=== PATIENT | male | born 1970 | race Caucasian/White ===

== ENCOUNTER 2019-04-25 10:24 | Inpatient (IN) | payer OTHER ==
[~2019-04-25] VITALS: Ht 185.4 cm; Wt 114.5 kg
[~2019-04-25 10:24] MED LIST: ACTOS15 MG PO; ASPIRIN81 MG PO; B COMPLEX1 CAP PO; BYETTA10 MCG/0.0 SC; EXFORGE 10 MG-31 TAB PO; FLONASE ALLERG9.9 ML NAS; METFORMIN HCL1000 MG PO; NEXIUM40 MG PO; PIOGLITAZONE HC30 MG PO; PREDNISONE10 MG PO; ROBITUSSIN AC 110 ML PO; SUPER EPA 2002000 MG PO; TESSALON PERLE200 MG PO; TRULICITY1.5 MG/0.5 SC; VITAMIN D1000 IU PO; ZITHROMAX Z PA250 MG PO
[2019-04-25 10:43] LABS: BASO % 0.8 % (0.0-1.0); EOS # 0.2 10*3/uL (0.0-0.4); EOS % 2.9 % (1.0-4.0); HEMATOCRIT 40.8 % (42.0-52.0); HEMOGLOBIN 13.4 g/dl (14.0-18.0); LYMPH # 1.2 10*3/uL (1.3-4.4); LYMPH % 22.7 % (27.0-41.0); MEAN CELL VOLUME 89.3 fl (80.0-94.0); MEAN CORPUSCULAR HGB 29.3 pg (27.0-31.0); MEAN CORPUSCULAR HGB CONC 32.8 g/dl (33.0-37.0); MEAN PLATELET VOLUME 11.1 fl (9.6-12.3); MONO # 0.5 10*3/uL (0.1-1.0); MONO % 10.3 % (3.0-9.0); NEUT # 3.3 10*3/uL (2.3-7.9); NEUT % 62.9 % (47.0-73.0); PLATELET COUNT AUTOMATED 222 10*3/uL (130-400); RED BLOOD COUNT 4.57 10*6/uL (4.50-5.90); RED CELL DISTRI WIDTH 13.5 % (0-14.5); WHITE BLOOD COUNT 5.2 10*3/uL (4.8-10.8)
[2019-04-25 10:49] VITALS: BP 142/84
[2019-04-25 10:54] LABS: INTERNATIONAL NORM RATIO 0.9 (2.0-3.5)
[2019-04-25 10:59] LABS: ALBUMIN 3.7 gm/dl (3.1-4.5); ALKALINE PHOSPHATASE 74 U/L (45-117); BUN 17 mg/dl (7-24); CHLORIDE 107 mmol/L (98-107); CREATININE 1.03 mg/dL (0.70-1.30); SGOT/AST 27 IU/L (3-35); SGPT/ALT 63 U/L (12-78); SODIUM 139 mmol/L (136-145); TOTAL PROTEIN 7.1 gm/dL (6.4-8.2)
[2019-04-25 11:00] LABS: TROPONIN I < 0.015 ng/ml (<0.045)
[2019-04-25] MEDS ORDERED: NEXIUM40 MG PO (11:21)
[2019-04-25] MEDS ORDERED: PIOGLITAZONE HC45 MG PO (11:22)
[2019-04-25] MEDS ORDERED: LIPITOR40 MG PO (11:23)
[2019-04-25] MEDS ORDERED: TRIBENZOR 40-11 EAC1 PO (11:23)
[2019-04-25] MEDS ORDERED: GLUCOPHAGE1000 MG PO (11:23)
[2019-04-25] MEDS ORDERED: VITAMIN B COMPL IJ (11:24)
[2019-04-25] MEDS ORDERED: ASPIRIN81 M1 PO (11:24)
[2019-04-25] MEDS ORDERED: TRULICITY1.5 MG/0.5 SC (11:24)
[2019-04-25] MEDS ORDERED: ZYRTEC10 MG PO (11:24)
[2019-04-25] MEDS ORDERED: GINGER500 MG PO (11:25)
[2019-04-25] MEDS ORDERED: VITAMIN D-32000 UNI1 PO (11:25)
[2019-04-25] MEDS ORDERED: PRINIVIL10 MG PO (11:28)
[2019-04-25] MEDS ORDERED: B121000 MCG/1 IM (11:29)
[2019-04-25 11:40] VITALS: BP 138/92
--- NOTE | 2019-04-25 11:40 | NUR ---
A 49, admitted to , under the services of [facility] DO with a diagnosis of CHEST PAIN. Chief complaint is CHEST TIGHTNESSS, MILD SOB, & HEAD FLET LIKE IT WAS GOING TO EXPLODE. Patient arrived via stretcher from ER. Monitor applied. Initial assessment completed. Vital signs taken and recorded. [facility] HE[facility] DO notified of admission to the unit. Orders received. See assessment for past medical history, medications and allergies. Patient and/or family oriented to unit. [facility] visitation policy reviewed. Clothing/patient valuable form completed. ANURAG AUGUSTIN
[2019-04-25 12:00] VITALS: BP 138/82
--- NOTE | 2019-04-25 12:28 | NUR ---
PER DR BOWEN DO NOT START LISINOPRIL - PATIENT TO HAVE STRESS TEST ON SATURDAY
[2019-04-25 13:40] VITALS: BP 122/68
[2019-04-25 16:00] VITALS: BP 117/70
--- NOTE | 2019-04-25 17:09 | NUR ---
TYLENOL GIVEN FOR HEADACHE - NTG PASTE REMOVED TO SEE IF THAT HELPS HEADACHE SINCE BP IMPROVED
--- NOTE | 2019-04-25 18:22 | NUR ---
HEADACHE BETTER SINCE TYLENOL - SISTER VISITING
[2019-04-25 20:00] VITALS: BP 134/66
[2019-04-26] VITALS: BP 108/66
--- NOTE | 2019-04-26 02:26 | NUR ---
24 HR. CHART CHECK COMPLETE.
[2019-04-26 06:16] LABS: BASO % 0.9 % (0.0-1.0); EOS # 0.2 10*3/uL (0.0-0.4); EOS % 3.2 % (1.0-4.0); HEMATOCRIT 39.8 % (42.0-52.0); HEMOGLOBIN 13.2 g/dl (14.0-18.0); LYMPH # 1.2 10*3/uL (1.3-4.4); LYMPH % 25.1 % (27.0-41.0); MEAN CELL VOLUME 89.2 fl (80.0-94.0); MEAN CORPUSCULAR HGB 29.6 pg (27.0-31.0); MEAN CORPUSCULAR HGB CONC 33.2 g/dl (33.0-37.0); MEAN PLATELET VOLUME 11.6 fl (9.6-12.3); MONO # 0.6 10*3/uL (0.1-1.0); MONO % 12.8 % (3.0-9.0); NEUT # 2.7 10*3/uL (2.3-7.9); NEUT % 57.6 % (47.0-73.0); PLATELET COUNT AUTOMATED 219 10*3/uL (130-400); RED BLOOD COUNT 4.46 10*6/uL (4.50-5.90); RED CELL DISTRI WIDTH 13.6 % (0-14.5); WHITE BLOOD COUNT 4.7 10*3/uL (4.8-10.8)
[2019-04-26 06:50] LABS: ALBUMIN 3.4 gm/dl (3.1-4.5); BUN 17 mg/dl (7-24); CHLORIDE 108 mmol/L (98-107); CHOLESTEROL 131 mg/dL (<200); CREATININE 0.95 mg/dL (0.70-1.30); POTASSIUM 3.9 mmol/L (3.5-5.1); SGOT/AST 23 IU/L (3-35); SGPT/ALT 55 U/L (12-78); SODIUM 140 mmol/L (136-145)
[2019-04-26 06:58] LABS: ALKALINE PHOSPHATASE 62 U/L (45-117); FREE T4 0.99 ng/dl (0.76-1.46); HDL CHOLESTEROL 34 mg/dl (40-60); LDL CHOLESTEROL 67 mg/dL (9-159); TOTAL PROTEIN 6.6 gm/dL (6.4-8.2); TRIGLYCERIDES 152 mg/dl (<150); VLDL CHOLESTEROL 30 mg/dL (6-40)
--- NOTE | 2019-04-26 07:08 | NUR ---
24 HR chart check completed.
--- NOTE | 2019-04-26 09:57 | NUR ---
CALLED DR. MARQUEZ IN REGARDS TO PT'S BP OF 102/74. HE STATED TO HOLD ALL BP MEDICATIONS THIS AM.
[2019-04-26 09:58] VITALS: BP 102/74
[2019-04-26 12:00] VITALS: BP 125/85
[2019-04-26 16:00] VITALS: BP 126/79
--- NOTE | 2019-04-26 16:50 | NUR ---
PRN TYLENOL GIVEN FOR A HEADACHE. WILL CONTINUE TO ASSESS EFFECTIVENESS.
--- NOTE | 2019-04-26 17:50 | NUR ---
PRN TYLENOL WAS EFFECTIVE. PT IS RESTING COMFORTABLY, IN A CHAIR. WILL CONTINUE TO MONITOR.
--- NOTE | 2019-04-26 19:30 | NUR ---
PATIENT IS RESTING IN BED WITH EASY AND REGULAR RESPERS ON ROOM AIR. ASSESSMENT IS COMPLETE WITH NO C/O OR S/S OF DISTRESS NOTED AT THIS TIME. BED IS LOW, LOCKED, AND CALL LIGHT IS WITHIN REACH. WILL CONTINUE TO MONITOR SEE SHIFT ASSESSMENT.
[2019-04-26 20:00] VITALS: BP 124/79
[2019-04-27] VITALS: BP 122/78
[2019-04-27 06:15] LABS: BASO # 0.1 10*3/uL (0.0-0.1); BASO % 1.1 % (0.0-1.0); EOS # 0.1 10*3/uL (0.0-0.4); EOS % 3.1 % (1.0-4.0); HEMOGLOBIN 13.2 g/dl (14.0-18.0); LYMPH # 1.2 10*3/uL (1.3-4.4); LYMPH % 26.9 % (27.0-41.0); MEAN CELL VOLUME 88.7 fl (80.0-94.0); MEAN CORPUSCULAR HGB 29.3 pg (27.0-31.0); MEAN PLATELET VOLUME 11.7 fl (9.6-12.3); MONO # 0.6 10*3/uL (0.1-1.0); MONO % 13.1 % (3.0-9.0); NEUT # 2.6 10*3/uL (2.3-7.9); NEUT % 55.6 % (47.0-73.0); PLATELET COUNT AUTOMATED 214 10*3/uL (130-400); RED BLOOD COUNT 4.51 10*6/uL (4.50-5.90); RED CELL DISTRI WIDTH 13.6 % (0-14.5); WHITE BLOOD COUNT 4.6 10*3/uL (4.8-10.8)
[2019-04-27 06:36] LABS: BUN 15 mg/dl (7-24); CHLORIDE 107 mmol/L (98-107); CREATININE 0.92 mg/dL (0.70-1.30); SODIUM 141 mmol/L (136-145)
[2019-04-27 08:00] VITALS: BP 118/80
--- NOTE | 2019-04-27 08:14 | NUR ---
ASSESSMENT COMPLETE AT THIS TIME. PT STABLE, VITALS WNL. NO COMPLAINTS VOICED AT THIS TIME. PT DENIES CHEST PAIN/PRESSURE. WAITING TO GO DOWN FOR HIS STRESS TEST. PT IS PLEASANT, ALERT AND ORIENTEDX3, COOPERATIVE. SITTING WITH FAMILY IN ROOM. CALL LIGHT IN REACH.
--- NOTE | 2019-04-27 09:00 | NUR ---
INFORMED CONSENT OBTAINED FOR A CARDIOLITE STRESS TEST WITH DR SANDOVAL. RESTING EKG NSR WITH A SUPINE HT RT OF 65, WITH A BP OF 130/74. HT RT OF 78, WITH A BP OF 126/78 IN THE STANDING POSITION. PT COMPLETED 9:00 OF A KURTIS PROTOCOL WITH COMPLETION OF STAGE III AT 3.4 MPH AND A 14% GRADE. REACHED A PEAK HT RT OF 150 WHICH IS 85% OF THE PREDICTED MAX WIHT A PEAK BP OF 170/82. TEST TERMINATED DUE TO FATIGUE. DENIED CHEST PAIN. HAS A GOOD EXERCISE TOLERANCE. LAST RECOVERY HT RT OF 115, WITH A BP OF 140/72. TAKEN TO [facility] IN STABLE CONDITION.
--- NOTE | 2019-04-27 10:21 | NUR ---
PT AT STRESS TEST AT THIS TIME. WILL CATCH PATIENT UP WITH MORNING MEDICATIONS WHEN HE RETURNS TO FLOOR.
--- NOTE | 2019-04-27 13:30 | NUR ---
[employer] Supervisor in to talk to patient. Patient states lives at HOME with . There are FEW steps in the home. Physician: DR ESTEVES AT [facility] Pharmacy: [facility] Home health services: NONE Patient's level of ADLs: INDEPENDENT Patient has working utilities: YES DME: NONE Follow-up physician's appointment after d/c: WILL BE MADE BY HOSPITALIST NURSE DIRECTOR ON DISCHARGE Does patient want to access PORTAL?: NO Discharge plan PT LIVES AT HOME WITH AND IS INDEPENDENT IN HIS CARE. DENIES THAT HE WILL HAVE ANY NEEDS AT HOME. WILL CONTINUE TO FOLLOW. PT STATES HE WILL HAVE A RIDE HOME ON DISCHARGE. ARNALDO ANDRADE
--- NOTE | 2019-04-27 14:00 | NUR ---
SPOKE WITH DR SANDOVAL REGARDING PATIENT'S MEDS AND BLOOD PRESSURE. DR SANDOVAL GIVES OKAY TO HOLD BLOOD PRESSURE MEDICATIONS TODAY.
--- NOTE | 2019-04-27 15:57 | NUR ---
SPOKE WITH DR BOWEN REGARDING DISCHARGE MEDICATIONS. DR BOWEN STATES THAT HE WOULD LIKE TO SEND PATIENT HOME ON HYDROCHLOROTHIAZIDE AND METOPROLOL. DR HAMPTON AWARE.
[2019-04-27 16:00] VITALS: BP 138/77
--- NOTE | 2019-04-27 16:15 | NUR ---
SPOKE WITH DR SANDOVAL REGARDING DISCHARGE MEDICATIONS. ORDERS RECEIVED TO CONTINUE PATIENT'S "3 IN 1 COMBINATION BLOOD PRESSURE PILL THAT HE TAKES AT HOME". ORDERS ALSO RECEIVED TO GIVE THE PATIENT A ONE TIME DOSE OF NORVASC 5 MG DUE TO BLOOD PRESSURE ELEVATION LAST VITAL SIGN CHECK. WILL MEDICATE PATIENT AND NOTIFY PRIMARY TEAM OF NEW ORDERS.
--- NOTE | 2019-04-27 17:18 | NUR ---
Discharge instructions reviewed with patient/family. Patient receptive and verbalizes understanding. Follow-up care arranged. Written instructions given to patient/family. CIPRIANO DUNN
== END 2019-04-27 17:18 | disposition home or self-care (01) | DRG 880 ==
LOC: ED 10:24 → EDHOLD 11:09 → 5E 11:09
PROVIDERS: Emergency Medicine; Student in an Organized Health Care Education/Training Program; ADMIT Internal Medicine
DX: F41.9 Anxiety disorder, unspecified (principal); E44.1 Mild protein-calorie malnutrition; K21.9 Gastro-esophageal reflux disease without esophagitis; I10 Essential (primary) hypertension; E11.65 Type 2 diabetes mellitus with hyperglycemia; E66.3 Overweight; D64.9 Anemia, unspecified; F10.10 Alcohol abuse, uncomplicated; D72.819 Decreased white blood cell count, unspecified; E87.8 Other disorders of electrolyte and fluid balance, not elsewhere classified; E78.5 Hyperlipidemia, unspecified; E78.00 Pure hypercholesterolemia, unspecified; Z68.33 Body mass index [BMI] 33.0-33.9, adult; Z79.899 Other long term (current) drug therapy; Z79.82 Long term (current) use of aspirin; Z98.52 Vasectomy status; Z82.49 Family history of ischemic heart disease and other diseases of the circulatory system; Z83.3 Family history of diabetes mellitus; Z80.8 Family history of malignant neoplasm of other organs or systems; Z79.84 Long term (current) use of oral hypoglycemic drugs